=== PATIENT | female | born 1965 | race Caucasian/White ===

== ENCOUNTER 2020-03-05 01:38 | Emergency (ER) | payer MEDICARE ==
[2020-03-05] MEDS ORDERED: Cyclobenzaprine 10 MG Tab PO ONE (01:56)
[2020-03-05] MEDS ORDERED: Acetaminophen/HYDROcodone 325-5 MG Tab PO STA (01:57)
--- NOTE | 2020-03-05 02:59 | EDM.PDOC ---
ED HPI GENERAL MEDICAL PROBLEM - General Chief Complaint: Upper Extremity Injury/Pain Stated Complaint: FALL Time Seen by Provider: 03/05/20 01:55 Source of Information: Reports: Patient History Limitations: Reports: No Limitations - History of Present Illness INITIAL COMMENTS - FREE TEXT/NARRATIVE: Patient presented to the ED because of Rt shoulder,Rt wrist,Rt hip pain and low back pain after falling while fishing and landed on her Rt side. She said she is hurting all over, 6/10 and worse with movements. She is more concern about her Rt hip which hurts the most. Right Shoulder Pain Score (Numeric/FACES): 10 - Related Data Allergies Allergy/AdvReac Type Severity Reaction Status Date / Time cefuroxime [From Ceftin] Allergy Rash Verified 03/05/20 02:03 erythromycin base Allergy Rash Verified 03/05/20 02:03 fexofenadine [From Wendy-D] Allergy Headache Verified 03/05/20 02:03 gabapentin Allergy Stomach Verified 03/05/20 02:03 Upset ketorolac [From Toradol] Allergy Stomach Verified 03/05/20 02:03 Upset naproxen Allergy Stomach Verified 03/05/20 02:03 Upset pseudoephedrine Allergy Headache Verified 03/05/20 02:03 [From Wendy-D] tramadol [From Ultram] Allergy Stomach Verified 03/05/20 02:03 Upset Home Meds: Home Meds Cyclobenzaprine [Flexeril] 10 mg PO TID PRN #15 tab 03/05/20 [Rx] DULoxetine [Cymbalta] 30 mg PO DAILY 03/05/20 [History] Doxepin HCl [Doxepin] 10 mg PO DAILY 03/05/20 [History] diphenhydrAMINE [Benadryl] 50 mg PO BID 03/05/20 [History] Past Medical History HEENT History: Reports: Allergic Rhinitis Psychiatric History: Reports: Anxiety, Depression - Past Surgical History GI Surgical History: Reports: Appendectomy, Cholecystectomy Musculoskeletal Surgical History: Reports: Arthroscopic Knee Other Musculoskeletal Surgeries/Procedures:: right knee Social & Family History - Family History Family Medical History: Noncontributory - Tobacco Use Smoking Status *Q: Never Smoker - Caffeine Use Caffeine Use: Reports: Coffee - Recreational Drug Use Recreational Drug Use: No Review of Systems - Review of Systems Review Of Systems: See Below Constitutional: Reports: No Symptoms Ears: Reports: No Symptoms Nose: Reports: No Symptoms Mouth/Throat: Reports: No Symptoms Respiratory: Reports: No Symptoms Cardiovascular: Reports: No Symptoms GI/Abdominal: Reports: No Symptoms Genitourinary: Reports: No Symptoms Musculoskeletal: Reports: Shoulder Pain, Back Pain, Muscle Pain, Other (wrist pain) Skin: Reports: No Symptoms ED EXAM, GENERAL - Physical Exam Exam: See Below Exam Limited By: No Limitations General Appearance: Alert, No Apparent Distress Eye Exam: Bilateral Eye: PERRL Ears: Normal External Exam, Normal Canal Nose: Normal Inspection, Normal Mucosa Throat/Mouth: Normal Inspection, Normal Lips Head: Atraumatic, Normocephalic Neck: Normal Inspection, Supple, Non-Tender, Full Range of Motion Respiratory/Chest: No Respiratory Distress, Lungs Clear, Normal Breath Sounds Cardiovascular: Normal Peripheral Pulses, Regular Rate, Rhythm, No Edema, No Gallop GI/Abdominal: Normal Bowel Sounds, Soft, Non-Tender, No Organomegaly, No Distention, No Abnormal Bruit Back Exam: Normal Inspection, Full Range of Motion Extremities: Normal Inspection, Normal Range of Motion, Other (tenderness to the Rt shoulder/wrist/hip and lumbar area) Neurological: Alert, Oriented, CN II-XII Intact Psychiatric: Normal Affect, Normal Mood Course - Vital Signs Text/Narrative:: Xray Rt shoulder/wrist/hip/lumbar spine-see result Flexeril 10 mg po x1 norco 5/325, 2 po x 1 Last Recorded V/S: Last Vital Signs Temp 36.6 C 03/05/20 01:51 Pulse 65 03/05/20 02:58 Resp 16 03/05/20 02:58 BP 129/82 03/05/20 02:58 Pulse Ox 100 03/05/20 02:58 - Orders/Labs/Meds Orders: Active Orders 24 hr Category Date Time Status Hip Min 2V or 3V w Pelvis Rt [CR] Stat Exams 03/05/20 01:52 Taken Lumbar Spine 2 or 3V [CR] Stat Exams 03/05/20 01:52 Taken Shoulder Comp Rt [CR] Stat Exams 03/05/20 01:52 Taken Wrist Comp Min 3V Rt [CR] Stat Exams 03/05/20 01:52 Ordered Meds: Medications Discontinued Medications Generic Name Dose Route Start Last Admin Trade Name Freq PRN Reason Stop Dose Admin Hydrocodone Bitart/Acetaminophen 2 tab 03/05/20 01:57 03/05/20 02:05 [place] 325-5 Mg PO 03/05/20 01:58 2 tab NOW STA Administration Cyclobenzaprine HCl 10 mg 03/05/20 01:56 03/05/20 02:05 Flexeril PO 03/05/20 01:57 10 mg ONETIME ONE Administration Departure - Departure Time of Disposition: 03:00 Disposition: Home, Self-Care 01 Condition: Good Clinical Impression: Musculoskeletal pain, Contusion - Discharge Information Prescriptions: Cyclobenzaprine [Flexeril] 10 mg PO TID PRN #15 tab PRN Reason: Spasms Instructions: Contusion, [id number], Musculoskeletal Pain Referrals: PCP,None [Primary Care Provider] - Forms: ED Department Discharge Additional Instructions: please read discharge instructions on musculoskeletal pain and contusion apply ice or heat whichever makes the pain feel better take tylenol 1000 mg (for pain) and flexeril 10 mg (for muscle spasm) every 8 hours as needed follow up as needed Sepsis Event Note - Evaluation Sepsis Screening Result: No Definite Risk - Focused Exam Vital Signs: Vital Signs Temp Pulse Resp BP Pulse Ox 03/05/20 02:58 65 16 129/82 100 03/05/20 01:51 36.6 C 83 16 120/71 100 Date Exam was Performed: 03/05/20 Time Exam was Performed: 03:07 - My Orders Last 24 Hours: My Active Orders 03/05/20 01:52 Hip Min 2V or 3V w Pelvis Rt [CR] Stat Lumbar Spine 2 or 3V [CR] Stat Shoulder Comp Rt [CR] Stat Wrist Comp Min 3V Rt [CR] Stat - Assessment/Plan Last 24 Hours: My Active Orders 03/05/20 01:52 Hip Min 2V or 3V w Pelvis Rt [CR] Stat Lumbar Spine 2 or 3V [CR] Stat Shoulder Comp Rt [CR] Stat Wrist Comp Min 3V Rt [CR] Stat
--- NOTE | 2020-03-07 10:48 | CR ---
INDICATION: Fall. RIGHT HIP WITH PELVIS: Two frontal views of the pelvis with frontal and lateral views of the right hip were obtained 03/05/20 - no comparison. Minimal degenerative changes are noted at the hip joint with the joint space well preserved. A definite fracture or dislocation was not identified. There are some mild degenerative changes at the sacroiliac joints on the right. Minimal degenerative changes also noted at the left sacroiliac joint and the left hip joint also. Overall bone density appeared to be normal. Hypertrophic degenerative changes and disk disease noted at L4-5. IMPRESSION: 1. No acute fracture or dislocation noted - if symptoms persist - if occult fracture site is suspected clinically, re-examination in 10 to 14 days and/or CT of the pelvis may be helpful. 2. Hypertrophic degenerative changes and disk disease at L4-5. 3. 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 MTDD
--- NOTE | 2020-03-07 10:54 | CR ---
INDICATION: Fall. LUMBAR SPINE: Three views of the lumbosacral spine revealed moderately severe hypertrophic changes bridging the disk space on the right and, to a lesser extent, anteriorly at L4-5 with narrowing of the disk space compatible with disk disease at that level. The L3-4 disk space is also narrowed with milder hypertrophic changes off vertebral bodies anteriorly and laterally at that level. There are also some hypertrophic changes at L2-3 anterolaterally with question of disk disease at that level suggested by a slightly narrowed disk space at that level. Pedicles appear to be grossly intact. Sacroiliac joints appear to be intact, except for some very minimal degenerative change. Overall bone density appeared to be normal. There appears to be some degenerative change at the apophyseal joints of the mid -to-lower levels of the lumbosacral spine. IMPRESSION: 1. No acute fracture or dislocation. 2. Hypertrophic degenerative changes and disk disease L2-L5. MTDD
--- NOTE | 2020-03-07 10:57 | CR ---
INDICATION: Fall. RIGHT SHOULDER: Four images of the right shoulder were obtained in 3 projections and revealed no demonstrated fracture, dislocation or other definite bone or joint abnormality. Adjacent ribs and lung were unremarkable. MTDD
--- NOTE | 2020-03-07 13:33 | CR ---
INDICATION: Fall. RIGHT WRIST: Frontal and lateral views, with oblique view of the right wrist, revealed mild degenerative changes at the 1st metacarpocarpal joint. An acute fracture, dislocation, or other significant bone or joint abnormality was not identified. IMPRESSION: Mild osteoarthritis. MTDD
== END 2020-03-05 03:10 | disposition home or self-care (01) ==
LOC: FB.ED 01:38
DX: S40.011A Contusion of right shoulder, initial encounter (principal); S60.211A Contusion of right wrist, initial encounter; S70.01XA Contusion of right hip, initial encounter; S30.0XXA Contusion of lower back and pelvis, initial encounter; Z88.1 Allergy status to other antibiotic agents; Z88.6 Allergy status to analgesic agent; Z88.5 Allergy status to narcotic agent; Z88.8 Allergy status to other drugs, medicaments and biological substances; F41.9 Anxiety disorder, unspecified; F32.9 Major depressive disorder, single episode, unspecified; Z79.899 Other long term (current) drug therapy; W19.XXXA Unspecified fall, initial encounter
CPT/HCPCS: 72100; 73030-RT; 73110-RT; 73502-RT; 99283; 99283-25; A9270-GY